=== PATIENT | female | born 1975 | race Two or more races ===

== ENCOUNTER → 2025-03-14 | Outpatient (CLI) | payer MEDICAID ==
[2025-03-14 13:30] LABS: Hematocrit 43.1 % (36.0-46.0); Hemoglobin 14.7 g/dL (12.2-16.2); Mean Corpuscular Hemoglobin 30.4 pg (28.0-32.0); Mean Corpuscular Volume 88.8 fL (80.0-100.0); Nucleated Red Blood Cells % 0.0 %
[2025-03-14 13:48] LABS: INR 0.92 (0.9-1.15); Partial Thromboplastin Time 26.1 SEC (24.5-34.5); Prothrombin Time 9.8 sec (9.3-11.8)
[2025-03-14 13:57] LABS: Anion Gap 10 (5-15); Calcium 8.9 mg/dL (8.7-10.4); Carbon Dioxide 26 mmol/L (20-31); Sodium 144 mmol/L (136-145)
[2025-03-14 13:58] LABS: Alanine Aminotransferase 98 U/L (7-40); Alkaline Phosphatase 152 U/L (46-116); BUN/Creatinine Ratio 12.5 (10.0-20.0); Blood Urea Nitrogen 9 mg/dL (9-23); Chloride 108 mmol/L (98-107); Glucose 100 mg/dL (74-106); Potassium 3.3 mmol/L (3.5-5.1)
[2025-03-14 13:59] LABS: Total Protein 7.3 g/dL (5.7-8.2)
[2025-03-14 14:00] LABS: Albumin 4.2 g/dL (3.2-4.8); Bilirubin, Total 0.5 mg/dL (0.2-1.0)
[2025-03-14 14:03] LABS: Urine Protein, UAD Negative (Negative)
== END | disposition home or self-care (01) ==
LOC: LAB 12:22 → EDSTATUS 03-17 13:13
PROVIDERS: ATTEND Internal Medicine Gastroenterology
DX: Z01.812 Encounter for preprocedural laboratory examination (principal); R11.2 Nausea with vomiting, unspecified; R19.5 Other fecal abnormalities; R10.9 Unspecified abdominal pain
CPT/HCPCS: 36415; 80053; 81001; 81025; 85025; 85610; 85730

== ENCOUNTER 2025-03-25 08:59 | Outpatient (CLI) | payer MEDICAID ==
[~2025-03-25] VITALS: Ht 152.4 cm; Wt 68.0 kg
[2025-03-25] VITALS (10 sets, daily range): BP systolic 106–144; BP diastolic 58–86; PULSE 68–74; RESP 11–18; O2SAT 92–98
[2025-03-25] MEDS ORDERED: MIDAZOLAM HCL 2MG/2ML 2ml VIAL (1mg/ml) ONE (09:18)
[2025-03-25] MEDS ORDERED: fentaNYL CITRATE 100 MCG/2 ML VL ONE (09:19)
--- NOTE | 2025-03-25 11:29 | DVH ---
US US GUIDANCE FOR NEEDLE PLACEME, HISTORY: FATTY LIVER, CIRRHOSIS PROCEDURE: Informed consent was obtained. The patient was placed supine on the gurney, and limited US was performed of the liver. IV sedation was administered. The skin over the area of interest was prepped with chlorhexidine which was allowed to dry and draped in the usual sterile fashion. Time out was performed. 1% local lidocaine was administered. With intermittent US guidance, Temno 17 gauge outer coaxial guiding needle was advanced into the liver. A core biopsy was obtained using Temno 18 gauge inner core biopsy needle. The specimens were placed in formalin and sent to pathology for analysis. The needle was withdrawn , and the visceral tract embolized with gelfoam pledgets. 8 minutes of pressure was held. Post procedural images were obtained. No immediate complication was identified. SEDATION: Dr. Mariola Khan was personally responsible for the administration of moderate sedation during the procedure performed, including the use of an independent trained observer who had no other duties during the procedure. The drugs utilized were IV fentanyl and versed (see nursing log for details). The total time of supervision by the attending physician was approximately 30 minutes. FINDINGS: Intra-procedural images demonstrate biopsy needle within the liver. Post procedural images do not demonstrate any significant hemorrhage. IMPRESSION: US guided random liver biopsy. Pathology results pending.
[2025-03-25] MEDS: HYDROcodone-ACET 5/325MG TAB PO ONE (12:32)
[2025-03-25] MEDS: HYDROcodone-ACET 5/325MG TAB ONE (12:32)
== END 2025-03-28 17:00 | disposition home or self-care (01) ==
LOC: CT 08:59
PROVIDERS: ATTEND Internal Medicine Gastroenterology
DX: K75.81 Nonalcoholic steatohepatitis (NASH) (principal); K74.00 Hepatic fibrosis, unspecified; R19.5 Other fecal abnormalities; J45.909 Unspecified asthma, uncomplicated; Z79.899 Other long term (current) drug therapy; Z90.49 Acquired absence of other specified parts of digestive tract; Z98.890 Other specified postprocedural states; Z84.89 Family history of other specified conditions
CPT/HCPCS: 47000; 76942; 88307; 88313; 88342; J2250; J3010; 76705; 99152; 99153